=== PATIENT | female | born 1975 | race Caucasian/White ===

== ENCOUNTER 2021-12-20 12:06 | Emergency (ER) | payer OTHER ==
[2021-12-20] MEDS ORDERED: HYDROcodone/Acetaminophen 5/325 mg Tablet ONE (13:06)
[2021-12-20] MEDS ORDERED: Boostrix 0.5 ML (Tdap) VIAL ONE (14:05)
== END 2021-12-20 14:08 | disposition home or self-care (01) ==
LOC: BURERS 12:06
DX: S90.02XA Contusion of left ankle, initial encounter (principal); D64.9 Anemia, unspecified; W20.8XXA Other cause of strike by thrown, projected or falling object, initial encounter; Z23 Encounter for immunization
CPT/HCPCS: 90471; 90715

== ENCOUNTER 2022-05-10 07:54 | Emergency (ER) | payer OTHER, SELFPAY | END 2022-05-10 09:28 | disposition home or self-care (01) | LOC: BURERS 07:54 | DX: M79.645 Pain in left finger(s) (principal); X50.1XXA Overexertion from prolonged static or awkward postures, initial encounter ==